=== PATIENT | female | born 1935 | race Hispanic/Latino ===

== ENCOUNTER 2018-11-16 16:50 | Inpatient (IN) | payer OTHER ==
--- OUTSIDE RECORDS SUMMARY | 2018-11-16 20:59 | XMS REPORT | Clinical Summary ---
:1935 Author Organization [facility] Address [address] [place] [address] Care Team Providers Name Role Phone Asked, No Pcp Primary Care Provider Unavailable Allergies No Known Allergies Medications Medication Sig Dispensed Refills Start Date End Date Status lisinopril Take 20 mg by 0 Active (PRINIVIL,ZESTRIL) 20 mg mouth daily. tablet furosemide (LASIX) 20 mg Take 20 mg by 0 Active tablet mouth 2 (two) times a day. metoprolol tartrate Take 25 mg by 0 Active (LOPRESSOR) 25 mg tablet mouth 2 (two) times a day. levothyroxine Take 25 mcg by 0 Active (SYNTHROID, LEVOXYL) 25 mouth every mcg tablet morning. gabapentin (NEURONTIN) Take 100 mg by 0 Active 100 mg capsule mouth 3 (three) times a day. pantoprazole (PROTONIX) Take 40 mg by 0 Active 40 MG EC tablet mouth daily. metFORMIN (GLUCOPHAGE) Take 500 mg by 0 Active 500 mg tablet mouth 2 (two) times a day with meals. sertraline (ZOLOFT) 100 Take 100 mg by 0 Active MG tablet mouth daily. iron, carbonyl, 45 mg Take 45 mg by 0 Active tablet mouth daily. simvastatin (ZOCOR) 20 Take 20 mg by 0 Active MG tablet mouth nightly. aspirin (ECOTRIN) 81 MG Take 81 mg by 0 Active enteric coated tablet mouth daily. Active Problems No known active problems Social History Tobacco Use Types Packs/Day Years Used Date Current Every Day Smoker Alcohol Use Drinks/Week oz/Week Comments No Sex Assigned at Date Recorded Not on file Job Start Date Occupation Industry Not on file Not on file Not on file Travel History Travel Start Travel End No recent travel history available. Last Filed Vital Signs Not on file Plan of Treatment Not on file Results Not on fileafter 11/15/2017 Insurance Payer Benefit Plan / Subscriber ID Effective Dates Phone Address Type Group MEDICARE MEDICARE PART A xxxxxxxxxx 2001-Present [place], [place] Medicare AND B MEDICAID MEDICAID xxxxxxxxx 2016-Present Medicaid Advance Directives Patient has advance care planning documents on file. For more information, please contact:Davey Araiza[address] [place] [address]
--- OUTSIDE RECORDS SUMMARY | 2018-11-16 21:00 | XMS REPORT ---
:1935 [facility] Address [address] [place] [address] Dr. Benitez [address] [place] [id number] Care Team Providers Name Role Phone Unavailable Unavailable Unavailable Problems This patient has no known problems. Allergies, Adverse Reactions, Alerts This patient has no known allergies or adverse reactions. Medications This patient has no known medications.
[2018-11-16] MEDS ORDERED: ONDANSETRON 4 MG/2 ML VIAL IV PRN (21:29)
--- NOTE | 2018-11-16 21:50 | P.HP ---
Certification for Inpatient Patient admitted to: Inpatient With expected LOS: >2 Midnights Practitioner: I am a practitioner with admitting privileges, knowledge of patient current condition, hospital course, and medical plan of care. Services: Services provided to patient in accordance with Admission requirements found in Title 42 Section 412.3 of the Code of Federal Regulations Patient History Date of Service: 11/16/18 Reason for admission: left interthocanteric fracture History of Present Illness: Ms Chung is an 83 years old woman with history of HTN, DM II, JESSICA, who fell at home yesterday, leading with left hip pain. She went to [facility] and was found to have a left intertrochanteric hip fracture. There was a problem with OR table, and surgery was cancel. Then the patient was transferred to our facility in order to have surgical fixation. At my encounter, the patient is in non-distress, stable vital signs. Allergies Kxgcvif-Rqc-Qyn Reductase Inhibitor Allergy (Verified 11/16/18 21:39) Rash sulfamethoxazole Allergy (Verified 11/16/18 21:40) Rash trimethoprim Allergy (Verified 11/16/18 21:40) Rash Home medications list reviewed: Yes Home Medications: Furosemide [Lasix] 20 mg PO DAILY 05/04/15 Lisinopril [Prinivil*] 20 mg PO BID 05/04/15 Potassium Chloride [K-Dur] 1 tab PO DAILY 05/04/15 Simvastatin [Zocor*] 20 mg PO BEDTIME 05/04/15 Ferrous Sulfate [Feosol] 325 mg PO DAILY #30 tab 05/05/15 Pantoprazole Sodium 40 mg PO DAILY #30 tablet. 05/05/15 - Past Medical/Surgical History -: HTN -: DM -: ANEMIA -: iron deficiency anemia -: TUBAL LIGATION -: HERNIA REPAIR - Family History Family History: Reviewed- Non-Contributory - Family History Father -: Seizures Mother -: Cancer - Social History Alcohol use: No CD- Drugs: No Caffeine use: No Place of Residence: Home Review of Systems 10-point ROS is otherwise unremarkable Physical Examination - Physical Exam General: Alert, In no apparent distress, Confused HEENT: Atraumatic, PERRLA, Mucous membr. moist/pink, EOMI, Sclerae nonicteric Neck: Supple, 2+ carotid pulse no bruit, No LAD, Without JVD or thyroid abnormality Respiratory: Clear to auscultation bilaterally, Normal air movement Cardiovascular: Regular rate/rhythm, Normal S1 S2 Gastrointestinal: Normal bowel sounds, No tenderness Musculoskeletal: Tenderness (lef hip tenderness to movements) Integumentary: No rashes Neurological: Normal speech, Normal tone, Normal affect Lymphatics: No axilla or inguinal lymphadenopathy Assessment and Plan - Problems (Diagnosis) (1) Intertrochanteric fracture of left hip Current Visit: Yes Status: Acute Qualifiers: Encounter type: initial encounter Fracture type: closed Fracture alignment: displaced Qualified Code(s): S72.142A - Displaced intertrochanteric fracture of left femur, initial encounter for closed fracture (2) Diabetes mellitus Current Visit: Yes Status: Acute Qualifiers: Diabetes mellitus type: type 2 Diabetes mellitus group home insulin use: without terminal manager use Diabetes mellitus complication status: with other specified complication Qualified Code(s): E11.69 - Type 2 diabetes mellitus with other specified complication (3) HTN (hypertension) Current Visit: Yes Status: Acute Qualifiers: Hypertension type: essential hypertension Qualified Code(s): I10 - Essential (primary) hypertension - Plan The patient has been transferred to have ORIF. Dr Tyler has been consulted. The patient is already clear for surgery by Dr Rivero (cardiology [place]). Will keep the patient NPO, cautious pain medication administration as needed. - Advance Directives Does patient have a Living Will: No Does patient have a Durable POA for Healthcare: No
[2018-11-16] MEDS: NA CHLORIDE 0.9% 1,000 ML IV SCH (22:07)
[2018-11-16] MEDS: MORPHINE 2 MG/ML SYR IV PRN (23:31)
[2018-11-17] MEDS: INSULIN -REGULAR HUMAN 50 UNIT/0.5 ML ML SQ SCH ×5 (01:22→21:59)
[2018-11-17] MEDS: MORPHINE 2 MG/ML SYR IV PRN ×3 (04:36→16:24)
[2018-11-17 05:41] LABS: Absolute Lymphocytes (CBC) 0.6 K/uL (0.7-4.9); Basophils % 0.2 % (0-1.3); Eosinophils % 2.6 % (0-4.4); Hematocrit 31.7 % (36.0-45.0); MPV 9.2 fL (7.6-11.3); Monocytes % 8.8 % (3.3-12.3); RBC Red Blood Cell Count 3.67 M/uL (3.86-4.86)
[2018-11-17 05:54] LABS: Potassium 4.2 mmol/L (3.5-5.1)
[2018-11-17] MEDS: NA CHLORIDE 0.9% 1,000 ML IV SCH ×2 (08:00→16:25)
[2018-11-17 08:28] LABS: Urine Appearance TURBID; Urine Bilirubin NEGATIVE (NEG); Urine Blood 3+ (NEG); Urine Color YELLOW; Urine Glucose TRACE (NEG); Urine Protein 3+ (NEG); Urine Specific Gravity 1.025 (1.005-1.030); Urine pH 5.5 (5.0-7.0)
[2018-11-17 08:29] LABS: Urine Microscopic Reflex ORDER UMIC
[2018-11-17 08:52] LABS: Urine Bacteria >50 /HPF (<20); Urine Culture Reflex Order REFLEXED; Urine Mucus 1+ /HPF (NONE SEEN); Urine RBC 20-50 /HPF (NONE SEEN)
--- NOTE | 2018-11-17 10:44 | P.PN ---
Subjective Date of Service: 11/17/18 Chief Complaint: left interthocanteric fracture Patient examined at bedside with RN. Chart reviewed. Case discussed with general surgery. Currently pending surgical procedure this morning. Has been NPO. Does complain of having pain to the left hip area Review of Systems 10-point ROS is otherwise unremarkable Physical Examination - Vital Signs Temperature: 98.1 F Blood Pressure: 149/67 Pulse: 87 Respirations: 20 Pulse Ox (%): 91 - Physical Exam General: Alert, In no apparent distress Respiratory: Clear to auscultation bilaterally, Normal air movement Cardiovascular: Regular rate/rhythm, Normal S1 S2 Gastrointestinal: Normal bowel sounds, No tenderness Musculoskeletal: Erythema, Tenderness Integumentary: No rashes Neurological: Normal speech, Normal tone, Normal affect Lymphatics: No axilla or inguinal lymphadenopathy - Studies Laboratory Data (last 24 hrs) 11/17/18 05:18: Sodium 143, Potassium 4.2, BUN 22 H, Creatinine 0.99, Glucose 216 H 11/17/18 05:18: WBC 5.6, Hgb 10.5 L, Hct 31.7 L, Plt Count 195 Medications List Reviewed: Yes Assessment And Plan - Current Problems (Diagnosis) (1) Intertrochanteric fracture of left hip Current Visit: Yes Status: Acute Plan: Left-sided intratrochanteric fracture of the hip. -orthopedic surgery consulted. Appreciated recommendations at this time -patient is scheduled for a surgical procedure this a.m. -NPO after midnight -hold blood thinners at this time -will followup post procedure Qualifiers: Encounter type: initial encounter Fracture type: closed Fracture alignment: displaced Qualified Code(s): S72.142A - Displaced intertrochanteric fracture of left femur, initial encounter for closed fracture (2) Diabetes mellitus Current Visit: Yes Status: Chronic Plan: Insulin sliding scale and Accu-Chek Qualifiers: Diabetes mellitus type: type 2 Diabetes mellitus custodial insulin use: without oil heaterman use Diabetes mellitus complication status: with other specified complication Qualified Code(s): E11.69 - Type 2 diabetes mellitus with other specified complication (3) HTN (hypertension) Current Visit: Yes Status: Chronic Plan: Will restart on home medication postprocedure -cardiology clearance obtained at [facility] Qualifiers: Hypertension type: essential hypertension Qualified Code(s): I10 - Essential (primary) hypertension - Plan Pending clinical improvement at this time. Will follow up with patient post procedure. Discharge Plan: Home Plan to discharge in: Greater than 2 days - Code Status/Comfort Care Code Status Assessed: Yes Critical Care: No
[2018-11-17] MEDS ORDERED: NA CHLORIDE 0.9% 1,000 ML ONE (11:00)
[2018-11-17] MEDS ORDERED: CEFAZOLIN/SWI 1gm 1 GM/10 ML SYR ONE (11:51)
[2018-11-17] MEDS ORDERED: TRANEXAMIC ACID 1,000 MG in NA CHLORIDE 0.9% 50 ML IV ONE (12:00)
--- NOTE | 2018-11-17 12:10 | EKG ---
Test Date: 2018-11-17 Test Time: 09:03:30 Personal Assistant: RUBÉN MEASUREMENT RESULTS: Intervals: Rate: 93 HI: 194 QRSD: 84 QT: 346 QTc: 430 [place]: P: 89 HI: 194 QRS: 48 T: 35 INTERPRETIVE STATEMENTS: Normal sinus rhythm Normal ECG Compared to ECG 05/03/2015 16:34:27 Sinus tachycardia no longer present Electronically Signed On 11-17-18 12:10:09 CDT by Dion Cheney
--- NOTE | 2018-11-17 12:45 | P.BOP ---
Preoperative diagnosis: left proximal femur fracture Postoperative diagnosis: same Primary procedure: left AMANDA south Estimated blood loss: 50 ccs Anesthesia: General Complications: None Transferred to: Recovery Room Condition: Good
[2018-11-17] MEDS: LABETALOL HCL 100 MG/20 ML ONE ×2 (13:22→13:31)
[2018-11-17] MEDS ORDERED: VERAPAMIL HCL 5 MG/2 ML VIAL IV ONE (13:30)
--- NOTE | 2018-11-17 13:32 | RAD REPORT ---
EXAM DESCRIPTION: RAD - Hip In Or - 11/17/2018 1:24 pm FINDINGS: There were 16 portable C-arm images submitted during fluoroscopic assisted placement of fr acture fixation hardware. No suspicious or unexpected finding. Fluoro time was 1.7 minutes.
[2018-11-17] MEDS ORDERED: MEPERIDINE HCL 25 MG/0.5 ML ONE (14:08)
[2018-11-17] MEDS ORDERED: D50W 25 GM/50 ML SYRINGE IV PRN (16:39)
[2018-11-17] MEDS ORDERED: GLUCAGON 1 MG/VIAL IM PRN (16:39)
--- NOTE | 2018-11-17 16:52 | OP ---
Date of Procedure: 11/17/2018 Surgeon: Alcides Tyler MD Preoperative Diagnosis: Left intertrochanteric fracture of the femur. Postoperative Diagnosis: Left intertrochanteric fracture of the femur. Procedure: Left closed reduction, intramedullary south for femur fracture using the [employer] Affixus sys tem. Estimated Blood Loss: 50 cc. Complications: There were no complications. Specimens: No pathology specimens sent. Indication For Operation: Ms. Chung is an 83-year-old female who unfortunately injured her left lo wer extremity. She was seen and examined in the Emergency Department, where she was found to have an intertrochanteric fracture. She was admitted to an outside hospital. She was cleared for cardiac p urposes. Unfortunately, their equipment was not suitable for this procedure, therefore she was trans ferred to a facility that had a working fracture table. She was seen this morning as I have seen her before and continues to complain of pain in the left hip. No other complaints of pain. Risks, bene fits, and alternatives were again discussed with the patient's family. They state they understand th ings as presented and wished to proceed. Description Of Procedure: The patient was taken to the operating room and placed in supine position. General anesthesia was obtained by staff. Following this, she was then transferred on the fracture table, where she was appropriately position checked with all of her bony prominences and closed redu ction maneuver was a performed and held and C-arm images were taken. These demonstrate a very good r eduction. Following this, the left lower extremity was then prepped and draped in usual sterile fash ion and an incision was made just proximal to the greater trochanter. This was taken down carefully through skin, soft tissues as well as the fascia. A finger was placed within the fascial incision an d the greater trochanter was easily palpated. The starting awl was then used as medial as was reason able to establish a good starting position. After this was done, the guide pin was then placed down the femur. The iron handler was then used distal to the greater trochanter and then the size 9 nail w as then placed to appropriate depth at 125 degrees. The guide pin was then placed. It may be very s lightly anterior, but otherwise doing well and felt that this was a better position than establishing more entry holes in the lateral femur and is accepted. This was followed by placement of the cephalo medullary screw at appropriate depth followed by placement of antirotation screw. This was followed by placement of the interlocking screw distally. Biplanar C-arm and radiography reveals good placeme nt of all screws with good reduction. The wounds were then irrigated and the fascia was closed in a watertight fashion using heavy Vicryl sutures followed by closure of the skin with 2-0 Vicryl sutures followed by fracisco. The patient was then placed in Aquacel dressing, awakened, and taken to recove ry room in good condition. There were no complications. /TOSHIA Voice ID: [id number] Report ID: [id number]
--- NOTE | 2018-11-17 16:58 | CON ---
Date of Consultation: 11/17/2018 History Of Present Illness: I am familiar with this patient. She was recently admitted to [facility] with a diagnosis of an intertrochanteric fracture on the left. She had a cons ultation by me at that time was cleared by cardiac status. We had planned on completing intramedulla ry south fixation of a left proximal femur fracture that evening. However, as we scheduled her, we wer e informed by the operating room staff that their fracture table was broken and had been broken for s ome time. Unfortunately did not inform myself, therefore, basically did not have a way of taking car e of her at [facility] because the equipment is not functional. She was therefore transferred to [facility] where they do have the equipment also able to practice and the risks, benefits, and alt ernatives to this procedure again discussed with both her and her family. They understand things as presented. She has no other injury and we will proceed with this as soon as we can. SHANIQUA Voice ID: [id number] Report ID: [id number]
[2018-11-17] MEDS: CEFAZOLIN/SWI 1gm 1 GM/10 ML SYR IVP SCH (18:10)
[2018-11-17] MEDS: ENOXAPARIN 30 MG/0.3 ML SQ SCH (18:21)
[2018-11-17] MEDS: PREGABALIN 150 MG CAP PO SCH (20:45)
[2018-11-18] MEDS: CEFAZOLIN/SWI 1gm 1 GM/10 ML SYR IVP SCH ×2 (00:17→09:22)
[2018-11-18] MEDS: MORPHINE 2 MG/ML SYR IV PRN (00:17)
[2018-11-18] MEDS: NA CHLORIDE 0.9% 1,000 ML IV SCH ×2 (04:00→09:34)
[2018-11-18] MEDS: ENOXAPARIN 30 MG/0.3 ML SQ SCH ×2 (09:22→21:41)
[2018-11-18] MEDS: PREGABALIN 150 MG CAP PO SCH ×2 (09:23→21:41)
[2018-11-18] MEDS: SERTRALINE HCL 100 MG TAB PO SCH (09:23)
[2018-11-18] MEDS: LISINOPRIL 20 MG TAB PO SCH (09:23)
[2018-11-18] MEDS: INSULIN -REGULAR HUMAN 50 UNIT/0.5 ML ML SQ SCH ×4 (09:26→21:41)
--- NOTE | 2018-11-18 10:43 | P.PN ---
Subjective Date of Service: 11/18/18 Chief Complaint: left interthocanteric fracture Patient examined at bedside with RN. Chart reviewed. Case discussed with general surgery. Currently status post ORIF. Doing well postprocedure. Does complain of having a lot of pain to the affected area. States that she was not able to sleep at night time. Educated extensively on the need to participate with physical therapy today for initial evaluation for proper placement. Review of Systems 10-point ROS is otherwise unremarkable Physical Examination - Vital Signs Temperature: 98.3 F Blood Pressure: 174/70 Pulse: 85 Respirations: 20 Pulse Ox (%): 91 - Physical Exam General: Alert, In no apparent distress HEENT: Atraumatic, PERRLA, EOMI Neck: Supple, JVD not distended Respiratory: Clear to auscultation bilaterally, Normal air movement Cardiovascular: Regular rate/rhythm, Normal S1 S2 Gastrointestinal: Normal bowel sounds, No tenderness Musculoskeletal: No tenderness, Tenderness Integumentary: No rashes Neurological: Normal speech, Normal tone, Normal affect Lymphatics: No axilla or inguinal lymphadenopathy - Studies Medications List Reviewed: Yes Assessment And Plan - Current Problems (Diagnosis) (1) Intertrochanteric fracture of left hip Current Visit: Yes Status: Acute Plan: Left-sided intratrochanteric fracture of the hip. -orthopedic surgery consulted. Appreciated recommendations at this time -status post ORIF POD 1 -on Lovenox for DVT prophylaxis -PT OT consulted -case management consulted for placement as well Qualifiers: Encounter type: initial encounter Fracture type: closed Fracture alignment: displaced Qualified Code(s): S72.142A - Displaced intertrochanteric fracture of left femur, initial encounter for closed fracture (2) Diabetes mellitus Current Visit: Yes Status: Chronic Plan: Insulin sliding scale and Accu-Chek Qualifiers: Diabetes mellitus type: type 2 Diabetes mellitus care home insulin use: without campaign assistant use Diabetes mellitus complication status: with other specified complication Qualified Code(s): E11.69 - Type 2 diabetes mellitus with other specified complication (3) HTN (hypertension) Current Visit: Yes Status: Chronic Plan: Stable at this time -restarted on home medication Qualifiers: Hypertension type: essential hypertension Qualified Code(s): I10 - Essential (primary) hypertension - Plan Currently pending PT evaluation. Will follow up with PT recommendations regarding placement. Case management has already been consulted for placement postprocedure Discharge Plan: Other Plan to discharge in: Greater than 2 days - Code Status/Comfort Care Code Status Assessed: Yes Critical Care: No
[2018-11-18 10:54] LABS: Absolute Lymphocytes (CBC) 0.6 K/uL (0.7-4.9); Basophils % 0.1 % (0-1.3); Eosinophils % 1.8 % (0-4.4); Hematocrit 29.7 % (36.0-45.0); Lymphocytes % 8.9 % (15.3-44.8); RBC Red Blood Cell Count 3.38 M/uL (3.86-4.86)
[2018-11-18] MEDS: HYDROCODONE/APAP 5/325 MG TAB PO PRN ×2 (11:15→17:23)
[2018-11-18 11:16] LABS: Albumin 2.1 g/dL (3.4-5.0); Bilirubin Total 0.3 mg/dL (0.2-1.0); Potassium 4.1 mmol/L (3.5-5.1)
[2018-11-18] MEDS: CEFTRIAXONE/SWI 1gm 1 GM/10 ML SYR IV SCH (11:18)
--- NOTE | 2018-11-19 01:26 | PN ---
Date of Progress Note: 11/18/2018 The patient is seen in her room today. Her dressing is clean, dry, and intact. She is sleeping comf ortably. Family is there. They do say that she participated with physical therapy and has had some difficulties with getting any sleep or rest, but appears to be doing well now. All of their question s had been answered. With regard to her hemoglobin, it is 9.4; hematocrit of 29.7. She has been afe brile. Pain level appears to be moving from 9 to 2. She apparently is doing well. /TOSHIA Voice ID: [id number] Report ID: [id number]
[2018-11-19] MEDS: HYDROCODONE/APAP 5/325 MG TAB PO PRN ×3 (04:46→21:32)
[2018-11-19 06:02] LABS: Absolute Lymphocytes (CBC) 0.6 K/uL (0.7-4.9); Basophils % 0.2 % (0-1.3); Eosinophils % 3.6 % (0-4.4); Hematocrit 28.9 % (36.0-45.0); Lymphocytes % 9.5 % (15.3-44.8); MPV 9.2 fL (7.6-11.3); Monocytes % 9.3 % (3.3-12.3); RBC Red Blood Cell Count 3.34 M/uL (3.86-4.86)
[2018-11-19 06:08] LABS: Albumin 1.9 g/dL (3.4-5.0); Bilirubin Total 0.3 mg/dL (0.2-1.0); Potassium 4.1 mmol/L (3.5-5.1); Protein, Total 5.9 g/dL (6.4-8.2)
[2018-11-19] MEDS: INSULIN -REGULAR HUMAN 50 UNIT/0.5 ML ML SQ SCH ×4 (10:14→21:34)
[2018-11-19] MEDS: SERTRALINE HCL 100 MG TAB PO SCH (10:15)
[2018-11-19] MEDS: LISINOPRIL 20 MG TAB PO SCH (10:15)
[2018-11-19] MEDS: ENOXAPARIN 30 MG/0.3 ML SQ SCH ×2 (10:16→21:34)
[2018-11-19] MEDS: CEFTRIAXONE/SWI 1gm 1 GM/10 ML SYR IV SCH (10:16)
[2018-11-19] MEDS: PREGABALIN 150 MG CAP PO SCH ×2 (10:20→21:33)
--- NOTE | 2018-11-19 11:31 | P.PN ---
Subjective Date of Service: 11/19/18 Chief Complaint: left interthocanteric fracture Patient examined at bedside with RN. Chart reviewed. Case discussed with general surgery. Currently status post ORIF. Doing well postprocedure. Does complain of having a lot of pain to the affected area. Educated extensively on the need to participate with physical therapy today for initial evaluation for proper placement. Did work with physical therapy yesterday. Was max assist at the edge of bed Review of Systems 10-point ROS is otherwise unremarkable Physical Examination - Vital Signs Temperature: 97.2 F Blood Pressure: 191/76 Pulse: 92 Respirations: 18 Pulse Ox (%): 95 - Physical Exam General: Alert, In no apparent distress HEENT: Atraumatic, PERRLA, EOMI Neck: Supple, JVD not distended Respiratory: Clear to auscultation bilaterally, Normal air movement Cardiovascular: Regular rate/rhythm, Normal S1 S2 Gastrointestinal: Normal bowel sounds, No tenderness Musculoskeletal: No tenderness Integumentary: No rashes Neurological: Normal speech, Normal tone, Normal affect Lymphatics: No axilla or inguinal lymphadenopathy - Studies Laboratory Data (last 24 hrs) 11/19/18 05:34: Sodium 145, Potassium 4.1, BUN 21 H, Creatinine 0.87, Glucose 160 H, Total Bilirubin 0.3, AST 55 H, ALT 11 L, Alkaline Phosphatase 85 11/19/18 05:34: WBC 6.2, Hgb 9.3 L, Hct 28.9 L, Plt Count 194 Microbiology Data (last 24 hrs): 11/17/18 07:48 Clean Catch Urine Jennings Count - Final >100,000 CFU/ML. 11/17/18 07:48 Clean Catch Urine - Final Escherichia Coli Esbl Medications List Reviewed: Yes Assessment And Plan - Current Problems (Diagnosis) (1) Intertrochanteric fracture of left hip Current Visit: Yes Status: Acute Plan: Left-sided intratrochanteric fracture of the hip. -orthopedic surgery consulted. Appreciated recommendations at this time -status post ORIF POD 2 -on Lovenox for DVT prophylaxis -PT OT consulted -case management consulted for placement as well Qualifiers: Encounter type: initial encounter Fracture type: closed Fracture alignment: displaced Qualified Code(s): S72.142A - Displaced intertrochanteric fracture of left femur, initial encounter for closed fracture (2) Diabetes mellitus Current Visit: Yes Status: Chronic Plan: Insulin sliding scale and Accu-Chek Qualifiers: Diabetes mellitus type: type 2 Diabetes mellitus assisted insulin use: without assisted use Diabetes mellitus complication status: with other specified complication Qualified Code(s): E11.69 - Type 2 diabetes mellitus with other specified complication (3) HTN (hypertension) Current Visit: Yes Status: Chronic Plan: Stable at this time -restarted on home medication Qualifiers: Hypertension type: essential hypertension Qualified Code(s): I10 - Essential (primary) hypertension (4) UTI (urinary tract infection) Current Visit: Yes Status: Acute Plan: UA consistent with urinary tract infection -urine culture positive for E. S. BL sensitive to meropenem -started on meropenem today -PICC line placed -Will need total of 2 weeks of therapy Qualifiers: Urinary tract infection type: acute cystitis Hematuria presence: without hematuria Qualified Code(s): N30.00 - Acute cystitis without hematuria - Plan Currently pending PT evaluation. Will follow up with PT recommendations regarding placement. Case management has already been consulted for placement postprocedure Discharge Plan: Alf Plan to discharge in: Greater than 2 days - Code Status/Comfort Care Code Status Assessed: Yes Critical Care: No
[2018-11-19] MEDS ORDERED: Meropenem 1000 MG/VIAL IV SCH (17:00)
[2018-11-19] MEDS: Meropenem 1,000 MG in NA CHLORIDE 0.9% 100 ML IV SCH (17:11)
[2018-11-20] MEDS: Meropenem 1,000 MG in NA CHLORIDE 0.9% 100 ML IV SCH ×3 (00:36→16:45)
[2018-11-20 05:57] LABS: Absolute Lymphocytes (CBC) 0.6 K/uL (0.7-4.9); Basophils % 0.3 % (0-1.3); Eosinophils % 4.1 % (0-4.4); Hematocrit 28.7 % (36.0-45.0); Lymphocytes % 11.7 % (15.3-44.8); MPV 9.3 fL (7.6-11.3); RBC Red Blood Cell Count 3.31 M/uL (3.86-4.86)
[2018-11-20 06:09] LABS: Albumin 1.8 g/dL (3.4-5.0); Bilirubin Total 0.4 mg/dL (0.2-1.0); Potassium 3.9 mmol/L (3.5-5.1); Protein, Total 5.8 g/dL (6.4-8.2)
[2018-11-20] MEDS: LISINOPRIL 20 MG TAB PO SCH (08:11)
[2018-11-20] MEDS: INSULIN -REGULAR HUMAN 50 UNIT/0.5 ML ML SQ SCH ×4 (08:12→22:11)
[2018-11-20] MEDS: PREGABALIN 150 MG CAP PO SCH ×2 (08:12→20:23)
[2018-11-20] MEDS: HYDROCODONE/APAP 5/325 MG TAB PO PRN ×3 (08:12→18:41)
[2018-11-20] MEDS: SERTRALINE HCL 100 MG TAB PO SCH (08:12)
[2018-11-20] MEDS: ENOXAPARIN 30 MG/0.3 ML SQ SCH ×2 (08:13→20:23)
[2018-11-20] MEDS ORDERED: POTASSIUM CL SA 10 MEQ TAB PO ONE (09:00)
--- NOTE | 2018-11-20 11:28 | P.DS ---
Admission Date: 11/16/18 Discharge Date: 11/20/18 Disposition: ROUTINE DISCHARGE Discharge Condition: GOOD Reason for Admission: left interthocanteric fracture Consultations: Orthopedic Procedures: ORIF - Problems (1) Intertrochanteric fracture of left hip Current Visit: Yes Status: Acute Qualifiers: Encounter type: initial encounter Fracture type: closed Fracture alignment: displaced Qualified Code(s): S72.142A - Displaced intertrochanteric fracture of left femur, initial encounter for closed fracture (2) Diabetes mellitus Current Visit: Yes Status: Chronic Qualifiers: Diabetes mellitus type: type 2 Diabetes mellitus snf insulin use: without oil heaterman use Diabetes mellitus complication status: with other specified complication Qualified Code(s): E11.69 - Type 2 diabetes mellitus with other specified complication (3) HTN (hypertension) Current Visit: Yes Status: Chronic Qualifiers: Hypertension type: essential hypertension Qualified Code(s): I10 - Essential (primary) hypertension (4) UTI (urinary tract infection) Current Visit: Yes Status: Acute Qualifiers: Urinary tract infection type: acute cystitis Hematuria presence: without hematuria Qualified Code(s): N30.00 - Acute cystitis without hematuria Brief History of Present Illness: See HPI Hospital Course: Overall during the hospital stay patient remained stable Patient was initially admitted to the hospital after being diagnosed with left hip intertrochanteric fracture at a outside facility. Orthopedics surgeon was consulted. Patient had open reduction internal fixation. Did well postprocedure. This is our working with physical therapy postprocedure as well. Did well overall. At that time patient's family requested the patient went to [facility] for [facility] facility. Patient was accepted at [facility] and thus was transferred there under stable condition. While here in the hospital patient was also found to have urinary tract infection which was positive for multidrug resistant E. coli. Patient was then started on IV meropenem while here in the hospital. PICC line was planes. Patient was to continue meropenem for 2 weeks total at the nursing facility as well. Patient was asked to follow up with orthopedic surgery along with primary care provider about 1-2 days post discharge. Patient was also asked to continue taking her meropenem for 2 weeks along with her Lovenox for at least 3 months post procedure. Vital Signs/Physical Exam: Temp Pulse Resp BP Pulse Ox 96.8 F 94 H 20 192/86 H 96 11/20/18 08:00 11/20/18 08:11 11/20/18 08:00 11/20/18 08:11 11/20/18 08:00 General: Alert, In no apparent distress HEENT: Atraumatic, PERRLA, EOMI Neck: Supple, JVD not distended Respiratory: Clear to auscultation bilaterally, Normal air movement Cardiovascular: Regular rate/rhythm, Normal S1 S2 Gastrointestinal: Normal bowel sounds, No tenderness Musculoskeletal: No tenderness Integumentary: No rashes Neurological: Normal speech, Normal tone, Normal affect Lymphatics: No axilla or inguinal lymphadenopathy Laboratory Data at Discharge: WBC 5.4 K/uL (4.3-10.9) 11/20/18 05:30 Hgb 9.3 g/dL (12.0-15.0) L 11/20/18 05:30 Hct 28.7 % (36.0-45.0) L 11/20/18 05:30 Plt Count 198 K/uL (152-406) 11/20/18 05:30 Sodium 142 mmol/L (136-145) 11/20/18 05:30 Potassium 3.9 mmol/L (3.5-5.1) 11/20/18 05:30 BUN 18 mg/dL (7-18) 11/20/18 05:30 Creatinine 0.76 mg/dL (0.55-1.3) 11/20/18 05:30 Glucose 159 mg/dL (74-106) H 11/20/18 05:30 Magnesium 2.3 mg/dL (1.8-2.4) 11/20/18 05:30 Total Bilirubin 0.4 mg/dL (0.2-1.0) 11/20/18 05:30 AST 46 U/L (15-37) H 11/20/18 05:30 ALT 13 U/L (12-78) 11/20/18 05:30 Alkaline Phosphatase 80 U/L (45-117) 11/20/18 05:30 Home Medications: Lisinopril [Prinivil*] 20 mg PO DAILY 11/17/18 Metformin HCl [Glucophage*] 500 mg PO BID 11/17/18 Pregabalin [Lyrica] 150 mg PO BID 11/17/18 Sertraline HCl 100 mg PO DAILY 11/17/18 Enoxaparin Sodium [Lovenox 30 MG INJ*] 30 mg SQ Q12HR #60 syr 11/20/18 Meropenem [Merrem] 1,000 mg IV Q8H #42 vial 11/20/18 New Medications: Enoxaparin Sodium [Lovenox 30 MG INJ*] 30 mg SQ Q12HR #60 syr Meropenem [Merrem] 1,000 mg IV Q8H #42 vial Patient Discharge Instructions: Please f.u with Ortho and PCP in 1 to 2 week post discharge. New medication. Merrem 1g BID for 14 days. Lovenox 30mg IM q12h for 30 days Diet: Regular Activity: Ad christine Followup: Alcides Tyler MD [ACTIVE - CAN ADMIT] - 1 Week
--- NOTE | 2018-11-20 11:49 | RAD REPORT ---
EXAM DESCRIPTION: XR Chest, 1 View CLINICAL HISTORY: The patient is 83 years old and is Female; PICC placement TECHNIQUE: Frontal view of the chest. COMPARISON: No relevant prior studies available. FINDINGS: LUNGS: The lungs are well-inflated with mild diffuse interstitial opacities. PLEURAL SPACE: Unremarkable. No pneumothorax. HEART: Unremarkable. No cardiomegaly. MEDIASTINUM: Unremarkable. BONES/JOINTS: There are degenerative changes of the bones. VASCULATURE: Atherosclerosis of the aorta is present. TUBES, LINES AND DEVICES: A right upper extremity PICC is present with the tip in the region of the SVC. IMPRESSION: 1. A right upper extremity PICC is present with the tip in the region of the SVC. 2. Mild diffuse interstitial opacities, nonspecific but may be secondary to an infectious, inflamma tory, or mild edematous process. Electronically signed by: Samantha Faye MD 11/20/2018 1:10 AM CDT Due to temporary technical issues with the PACS/Fluency reporting system, reports are being signed by the in house radiologist as a courtesy to ensure prompt reporting. The interpreting radiologist is f ully responsible for the content of the report.
[2018-11-20] MEDS: DOCUSATE NA 100 MG CAP PO SCH ×2 (12:26→20:23)
[2018-11-21] MEDS: Meropenem 1,000 MG in NA CHLORIDE 0.9% 100 ML IV SCH ×2 (00:29→08:53)
[2018-11-21] MEDS: HYDROCODONE/APAP 5/325 MG TAB PO PRN ×2 (00:32→07:59)
--- NOTE | 2018-11-21 01:26 | PN ---
Ms. Chung currently sleeping comfortable. Her dressing appears to be intact. Did not awaken her. She has been afebrile. Her hemoglobin is 9.3. At this time, if she is discharged, I would recommen d anticoagulation for 3 weeks after surgery followed by 3 weeks of aspirin, full strength is fine. T ouchdown weightbearing. [place] removed at 2 weeks. Replace the dressing only as needed. Normally has a followup with us in 2 weeks; however, if she is unable to do so, just ensure that her fracisco a re removed. Would anticipate progressing to full weightbearing at 6 weeks if everything goes well, w hich it should. If unable to get out of bed without having apply some slightly more weight to her le gs, then obviously get out of bed rather than continue protection of the hip. This would be at least for transfers or some functional training. /TOSHIA Voice ID: [id number] Report ID: [id number]
[2018-11-21] MEDS: SERTRALINE HCL 100 MG TAB PO SCH (07:59)
[2018-11-21] MEDS: ENOXAPARIN 30 MG/0.3 ML SQ SCH (07:59)
[2018-11-21] MEDS: LISINOPRIL 20 MG TAB PO SCH (08:00)
[2018-11-21] MEDS: DOCUSATE NA 100 MG CAP PO SCH (08:00)
[2018-11-21] MEDS: PREGABALIN 150 MG CAP PO SCH (08:53)
[2018-11-21] MEDS: INSULIN -REGULAR HUMAN 50 UNIT/0.5 ML ML SQ SCH (08:53)
== END 2018-11-21 09:43 | DRG 481 ==
LOC: 2ND 20:56
PROVIDERS: ADMIT Family Medicine; ATTEND Family Medicine
PROC: 0QS736Z Reposition Left Upper Femur with Intramedullary Internal Fixation Device, Percutaneous Approach (ICD-10-PCS; principal; 2018-11-17 11:30)
PROC: 02HV33Z Insertion of Infusion Device into Superior Vena Cava, Percutaneous Approach (ICD-10-PCS; 2018-11-19)
DX: S72.142A Displaced intertrochanteric fracture of left femur, initial encounter for closed fracture (principal); N30.00 Acute cystitis without hematuria; W19.XXXA Unspecified fall, initial encounter; Y93.9 Activity, unspecified; Y92.019 Unspecified place in single-family (private) house as the place of occurrence of the external cause; I10 Essential (primary) hypertension; E11.9 Type 2 diabetes mellitus without complications; D50.9 Iron deficiency anemia, unspecified; Z88.2 Allergy status to sulfonamides; B96.20 Unspecified Escherichia coli [E. coli] as the cause of diseases classified elsewhere; Z16.12 Extended spectrum beta lactamase (ESBL) resistance
CPT/HCPCS: 36415; 71045; 73530; 80048; 80053; 81003; 81015; 82962; 83735; 85025; 86850; 86900; 86901; 87077; 87086; 87088; 87186; 93005; 97110; 97163; 97530; J0690; J0696; J1650; J2175; J2270; J2405; J7030